=== PATIENT | male | born 1965 | race African-American/Black ===

== ENCOUNTER 2020-06-04 08:53 | Outpatient (CLI) | payer BC ==
[2020-06-04] MEDS ORDERED: iohexol 300mg/ml 100ml inj. ONE (09:28)
== END 2020-06-04 23:59 | disposition home or self-care (01) ==
LOC: 64 CT 08:53
PROVIDERS: ATTEND Surgery
DX: K76.0 Fatty (change of) liver, not elsewhere classified (principal); K42.9 Umbilical hernia without obstruction or gangrene; N20.0 Calculus of kidney; M51.37 Other intervertebral disc degeneration, lumbosacral region; K76.89 Other specified diseases of liver
CPT/HCPCS: 74160; Q9967